=== PATIENT | male | born 1950 | race Caucasian/White ===

== ENCOUNTER → 2017-01-24 | Outpatient (CLI) | payer OTHER ==
[~2017-01-24] MED LIST: HYDR12.53 PO; RIVA10TA PO
--- NOTE | 2017-01-24 10:36 | KCIC ---
PROCEDURE Left lower extremity venous duplex ultrasound. HISTORY Swelling. History of deep vein thrombosis. TECHNIQUE Grayscale, color flow, and spectral waveform analysis was performed. COMPARISON March 24, 2015. FINDINGS The exam is positive for deep vein thrombosis, echogenic and potentially chronic. There is involvement of the popliteal vein, nonocclusive. The superficial femoral vein appears duplicated and 1 appears completely occluded, the other is patent and compressible. Common femoral vein is patent. Left inguinal lymph node may be reactive. Overall, appearance is similar to the prior study. IMPRESSION There is deep vein thrombosis within the popliteal vein and a superficial femoral vein. This appears similar to prior and slightly echogenic, probably chronic. Superficial femoral vein appears duplicated, versus collateral drainage. This presumed 2nd superficial femoral vein is patent. Electronically signed by: Juvenal Mclain MD (Jan 24, 2017 10:34:48)
== END | disposition home or self-care (01) ==
LOC: KCIC US 08:32
PROVIDERS: ATTEND Internal Medicine Critical Care Medicine
DX: M79.89 Other specified soft tissue disorders (principal); I82.409 Acute embolism and thrombosis of unspecified deep veins of unspecified lower extremity; Z86.718 Personal history of other venous thrombosis and embolism
CPT/HCPCS: 93971

== ENCOUNTER → 2018-02-27 | Outpatient (CLI) | payer OTHER | END | disposition home or self-care (01) | LOC: KCIC US 08:36 | DX: M79.89 Other specified soft tissue disorders (principal); R60.0 Localized edema; Z86.718 Personal history of other venous thrombosis and embolism | CPT/HCPCS: 93970 ==